=== PATIENT | female | born 1990 | race Caucasian/White ===

== ENCOUNTER → 2017-12-17 | Outpatient (CLI) | payer SELFPAY ==
--- NOTE | 2017-12-17 15:59 | RADIOLOGY REPORT (SQ) ---
EXAM DESCRIPTION: U/S OB TRANSVAGINAL W/O DOP COMPLETED DATE/TIME: 12/17/2017 3:46 pm REASON FOR STUDY: ENCOUNTER FOR SUPERVISION OF OTHER NORMAL , FIRST TRIMESTER Z34.81 ENCOU NTER FOR SUPRVSN OF NORMAL , FIRST TRIM COMPARISON: None. TECHNIQUE: Transvaginal static and realtime grayscale images acquired of the pelvis. Additional eugenia cted spectral and color Doppler images recorded. All images stored on PACs. bHCG: Not available. LIMITATIONS: None. FINDINGS: UTERUS: No masses. No anomalies. GESTATIONAL SAC: Yes, measurements correspond to a 7 week 5 day gestation. YOLK SAC: No. POLE: No. RIGHT ADNEXA: Normal ovary with normal vascular flow. No adnexal free fluid. No adnexal masses. LEFT ADNEXA: Normal ovary with normal vascular flow. No adnexal free fluid. No adnexal masses. FREE FLUID: None. OTHER: Possible subchorionic bleed measuring 0.4 x 0.6 x 1.2 cm. IMPRESSION: POSSIBLE EARLY INTRAUTERINE . INTRAUTERINE GESTATIONAL SAC PRESENT WITH MEASUREMENTS CORRESPONDING TO A 7 WEEK 5 DAY GESTATION. LA CK OF VISUALIZATION OF THE YOLK SAC OR POLE AT THIS TIME IS SOMEWHAT CONCERNING. RECOMMEND FOLLOW-UP ULTRASOUND FOR VERIFICATION AND TO DETERMINE IF THERE IS NORMAL DEVELOPMENT OF TH E FETUS. Trimester of : First - 0 to 13 weeks. TECHNICAL DOCUMENTATION: JOB ID: [id number] [employer]- All Rights Reserved Reading location - IP/workstation name: [facility]
== END ==
LOC: RAD 14:56
PROVIDERS: ATTEND Nurse Practitioner Women's Health
DX: Z34.81 Encounter for supervision of other normal pregnancy, first trimester (principal)
CPT/HCPCS: 76817

== ENCOUNTER → 2017-12-23 | Outpatient (CLI) | payer MEDICAID | LOC: OCH 17:16 | PROVIDERS: ATTEND Nurse Practitioner Women's Health | DX: O36.80X0 Pregnancy with inconclusive fetal viability, not applicable or unspecified (principal); Z3A.00 Weeks of gestation of pregnancy not specified | CPT/HCPCS: 36415; 84702 ==

== ENCOUNTER → 2017-12-26 | Outpatient (CLI) | payer MEDICAID ==
--- NOTE | 2017-12-26 15:46 | RADIOLOGY REPORT (SQ) ---
EXAM DESCRIPTION: U/S OB TRANSVAG W/DOPPLER COMPLETED DATE/TIME: 12/26/2017 3:37 pm REASON FOR STUDY: O36.80X0 W INCONCLUSIVE VIABILITY, UNSP O36.80X0 W INCO NCLUSIVE VIABILITY, UNSP COMPARISON: 12/17/2017. TECHNIQUE: Transvaginal static and realtime grayscale images acquired of the pelvis. Additional eugenia cted spectral and color Doppler images recorded. All images stored on PACs. bHCG: Not available. LIMITATIONS: None. FINDINGS: UTERUS: No masses. No anomalies. GESTATIONAL SAC: Intrauterine gestational sac. Measurements correspond with a gestational age of 9 w eeks. YOLK SAC: No. POLE: No. RIGHT ADNEXA: Normal ovary with normal vascular flow. No adnexal free fluid. No adnexal masses. LEFT ADNEXA: Normal ovary with normal vascular flow. No adnexal free fluid. No adnexal masses. FREE FLUID: None. OTHER: Sub current bleed measuring 1 x 2 cm. IMPRESSION: GESTATIONAL SAC WITH NO YOLK SAC OR POLE. NO NORMAL DEVELOPMENT SINCE THE PRIOR STUDY. LACK OF NORMAL PROGRESSION IS CONCERNING FOR DEMISE. RECOMMEND CONFIRMATION WITH HCG LEVELS AN D FOLLOW-UP ULTRASOUND IN A FEW DAYS MAY ALSO BE INDICATED. Trimester of : First - 0 to 13 weeks. TECHNICAL DOCUMENTATION: JOB ID: [id number] [employer]- All Rights Reserved Reading location - IP/workstation name: [email or web address]
== END ==
LOC: RAD 15:08
PROVIDERS: ATTEND Nurse Practitioner Women's Health
DX: O36.80X0 Pregnancy with inconclusive fetal viability, not applicable or unspecified (principal); Z3A.00 Weeks of gestation of pregnancy not specified
CPT/HCPCS: 76817; 93976

== ENCOUNTER 2018-01-02 10:26 | Day surgery (SDC) | payer MEDICAID ==
[2018-01-02] MEDS ORDERED: HYDROMORPHONE HCL 2 MG TABLET PO PRN (11:04)
[2018-01-02] MEDS ORDERED: IBUPROFEN 800 MG TABLET PO PRN (11:04)
[2018-01-02] MEDS ORDERED: OXYCODONE-ACETAMINOPHEN 5-325 MG TABLET PO PRN ×4 (11:04→12:07)
[2018-01-02 11:14] LABS: HEMATOCRIT 36.6 % (36.0-47.0); HEMOGLOBIN 12.9 g/dL (12.0-15.5); MEAN CORPUSCULAR HEMOGLOBIN 32.1 pg (27.0-33.4); MEAN CORPUSCULAR HGB CONC 35.2 g/dL (32.0-36.0); MEAN CORPUSCULAR VOLUME 91 fl (80-97); PLATELET COUNT 297 10^3/uL (150-450); RED BLOOD COUNT 4.02 10^6/uL (3.72-5.28); RED CELL DISTRIBUTION WIDTH 12.8 % (11.5-14.0); WHITE BLOOD COUNT 5.4 10^3/uL (4.0-10.5)
[2018-01-02] MEDS ORDERED: MIDAZOLAM 2 MG/2 ML INJ ONE (11:36)
[2018-01-02] MEDS ORDERED: LIDOCAINE 2% INJ-PF (20 MG/ML) 10 ML AMPUL ONE (11:36)
[2018-01-02] MEDS ORDERED: FENTANYL CITRATE INJ/PF 100 MCG/2 ML AMPUL ONE (11:36)
[2018-01-02] MEDS ORDERED: ACETAMINOPHEN 100 ML IV ONE (11:37)
[2018-01-02] MEDS ORDERED: PROPOFOL INJ 200 MG/20 ML VIAL IV ONE (11:37)
[2018-01-02] MEDS ORDERED: FENTANYL CITRATE INJ/PF 100 MCG/2 ML AMPUL IV PRN ×3 (12:07)
[2018-01-02] MEDS ORDERED: PROMETHAZINE HCL INJ 25 MG/1 ML VIAL IV PRN ×2 (12:07)
[2018-01-02] MEDS ORDERED: MEPERIDINE HCL/PF INJ 25 MG/1 ML DISP.SYRIN IV PRN (12:07)
[2018-01-02] MEDS ORDERED: ONDANSETRON HCL INJ/PF 4 MG/2 ML SDV IV PRN (12:07)
[2018-01-02] MEDS ORDERED: DIPHENHYDRAMINE HCL 50 MG/ML VIAL IV PRN (12:07)
--- NOTE | 2018-01-02 12:54 | OPERATIVE REPORT E ---
Operative Report NAME: ALICIA CARDONA : 1990 AGE: 27Y DATE OF SURGERY: January 02, 2018 ROOM: PREOPERATIVE DIAGNOSIS: Missed . POSTOPERATIVE DIAGNOSIS: Missed . OPERATION: Suction dilatation and curettage. ESTIMATED BLOOD LOSS: Less than 25 mL. SURGEON: Jean-Claude FREY M.D. ANESTHESIA: General. TISSUE REMOVED OR ALTERED: Products of conception. PROCEDURE: The patient was placed in the dorsal lithotomy position, prepped and draped in the usual, sterile fashion. Speculum. Cervix was visualized and grasped with a single-toothed tenaculum, sounded to a depth of 9 cm. The cervix was sufficiently dilated to admit a #8 suction catheter. Suction curettage was performed, followed by sharp curettage, followed by repeat suction, a moderate amount of tissue being recovered. The single-toothed tenaculum was removed and hemostasis was noted. The patient tolerated the procedure well and was taken to recovery in good condition. DICTATING PHYSICIAN: Jean-Claude FREY M.D. [id number] PHY#: [id number] ID: [id number] JOB#: [id number] ACCT: [id number] cc:Jean-Claude FREY M.D. >
[2018-01-02 14:23] VITALS: BP 109/75
== END 2018-01-02 14:15 | disposition home or self-care (01) ==
LOC: OROUT 10:26
PROVIDERS: ATTEND Obstetrics & Gynecology
DX: O02.1 Missed abortion (principal)
CPT/HCPCS: 36415; 85027; 88305 ×2; 59820; J2250; J3010; J2704; J3490; J0131; 1965

== ENCOUNTER 2020-08-22 22:21 | Inpatient (IN) | payer BC ==
[2020-08-22] MEDS ORDERED: RINGERS SOLUTION,LACTATED 1,000 ML IV ONE (22:39)
[2020-08-22] MEDS ORDERED: RINGERS SOLUTION,LACTATED 1,000 ML IV PRN (22:39)
[2020-08-22 22:54] LABS: APPEARANCE,URINE TURBID; BILIRUBIN,URINE NEGATIVE (NEGATIVE); COLOR,URINE YELLOW; GLUCOSE, URINE NEGATIVE (NEGATIVE); KETONES,URINE NEGATIVE (NEGATIVE); LEUKOCYTE ESTERASE,URINE TRACE (NEGATIVE); NITRITE,URINE NEGATIVE (NEGATIVE); PROTEIN,URINE 100 mg/dL (NEGATIVE); URINE SPECIFIC GRAVITY 1.012
[2020-08-22 23:17] LABS: ABSOLUTE EOSINOPHILS # (AUTO) 0.1 10^3/uL (0.0-0.6); ABSOLUTE LYMPHOCYTES (AUTO) 1.6 10^3/uL (0.5-4.7); ABSOLUTE MONOCYTES (AUTO) 0.8 10^3/uL (0.1-1.4); ABSOLUTE NEUT (AUTO) 5.2 10^3/uL (1.7-8.2); BASOPHILS % (AUTO) 0.6 % (0-2); EOSINOPHILS % (AUTO) 1.4 % (0-6); HEMATOCRIT 34.3 % (36.0-47.0); LYMPHOCYTES % (AUTO) 20.5 % (13-45); MEAN CORPUSCULAR HEMOGLOBIN 32.8 pg (27.0-33.4); MEAN CORPUSCULAR VOLUME 94 fl (80-97); PLATELET COUNT 290 10^3/uL (150-450); RED BLOOD COUNT 3.65 10^6/uL (3.72-5.28); RED CELL DISTRIBUTION WIDTH 16.4 % (11.5-14.0); SEGMENTED NEUTROPHILS % (AUTO) 67.5 % (42-78); TOTAL CELLS COUNTED % (AUTO) 100 %; WHITE BLOOD COUNT 7.7 10^3/uL (4.0-10.5)
[2020-08-23] MEDS ORDERED: EPHEDRINE SULFATE INJ 50 MG/1 ML AMPULE ONE (01:10)
[2020-08-23] MEDS ORDERED: FENTANYL/BUPIVACAINE/NS/PF 300 MCG/150 ML RTUINJ EPI ONE (01:10)
[2020-08-23] MEDS ORDERED: ROPIVACAINE HCL 0.2% INJ/PF (2 MG/ML) 20 ML SDV ONE (01:10)
[2020-08-23] MEDS ORDERED: ACETAMINOPHEN 325 MG TABLET ONE ×2 (04:09→10:18)
[2020-08-23] MEDS ORDERED: ACETAMINOPHEN 325 MG TABLET PO PRN ×3 (04:13→12:55)
[2020-08-23] MEDS ORDERED: MAG HYDROX/AL HYDROX/SIMETH SUSP 30 ML UDCUP ONE ×2 (05:30→09:59)
--- NOTE | 2020-08-23 07:12 | Admission Physical ---
Datetime Report Generated by CPN: 08/23/2020 07:12 CURRENT ADMISSION Chief Complaint: Uterine Contractions Admit Impression : Term, Intrauterine Admit Plan: Admit to Unit ALLERGIES Medication Allergies: No Medication Allergies: No Known Allergies (01/02/2018) Latex: No Latex Allergies Food Allergies: no Environmental Allergies: no OBSTETRICAL HISTORY EDC: 08/20/2020 00:00 : 5 Para: 2 Term: 2 : 0 SAB: 2 IAB: 0 Ectopic: 0 Livin Cesareans: 0 VBACs: 0 Multiple Births: 0 Gestational Diabetes: No Rh Sensitization: No Incompetent Cervix: No MATHIEU: No Infertility: No ART Treatment: No Uterine Anomaly: No IUGR: No Hx Previous C/S: No Macrosomia: No Hx Loss/Stillborn: No PIH: No Hx : No Placenta Previa/Abruption: No Depression/PP Depression: No PTL/PROM: No Post Hemorrhage: No Current Procedures: Ultrasound SEE RECORDS Alcohol: No Marijuana : No Cocaine: No Other Illicit Drugs: No Cigarettes: Never Smoker. [id number] MEDICAL HISTORY Diabetes: No Blood Transfusion: No Pulmonary Disease (Asthma, TB): No Breast Disease: No Hypertension: No Paving Contractor Surgery: No Heart Disease: No Hosp/Surgery: No Autoimmune Disorder: No Anesthetic Complications: No Kidney Disease: Yes Abnormal Pap Smear: No Neuro/Epilepsy: No Psychiatric Disorders: No Other Medical Diseases: No Hepatitis/Liver Disease: No Significant Family History: No Varicosities/Phlebitis: No Trauma/Violence : No Thyroid Dysfunction: No INFECTIOUS HISTORY Gonorrhea: No Genital Herpes: No Chlamydia: No Tuberculosis: No Syphilis: No Hepatitis: No HIV/AIDS Exposure: No Rash or Viral Illness: No HPV: No PHYSICAL EXAM General: Normal HEENT: Normal Neurologic: Normal Thyroid: Normal Heart: Normal Lungs: Normal Breast: Deferred Back: Normal Abdomen: Normal Genitourinary Exam: Normal Extremities: Normal DTRs: Normal Pelvic Type: Adequate Vital Signs: Reviewed VAGINAL EXAM Dilatation: 8 Effacement: 80 FETUS A EGA: 40.3 FHR- Baseline: 130 Variability: Moderate 6-25bpm FHR Category: Category I Presentation: Vertex Admit Comment: 9lbs PLANS FOR LABOR AND DELIVERY Labor and Delivery: None Pain Management: Epidural Feeding Preference: Breast Benefit of Breast Feed Discussed: Yes Circumcision: Yes INFORMED CONSENT Signature: with User ID: [email or web address]
[2020-08-23] MEDS ORDERED: OXYTOCIN 10 UNIT/ML VIAL ONE (07:36)
[2020-08-23] MEDS ORDERED: OXYTOCIN/0.9 % SODIUM CHLORIDE 30 UNIT/500 ML RTUINJ ONE (07:36)
[2020-08-23] MEDS ORDERED: MISOPROSTOL 0.2 MG TABLET ONE (07:36)
[2020-08-23] MEDS ORDERED: LIDOCAINE 1% INJ-PF (10 MG/ML) 30 ML SDV ONE (07:36)
[2020-08-23] MEDS ORDERED: OXYTOCIN/0.9 % SODIUM CHLORIDE 30 UNIT/500 ML RTUINJ IV PRN ×2 (10:17→12:55)
[2020-08-23] MEDS ORDERED: MAG HYDROX/AL HYDROX/SIMETH SUSP 30 ML UDCUP PO PRN (11:01)
[2020-08-23] MEDS ORDERED: PROMETHAZINE HCL 25 MG SUPP.RECT PR PRN (12:55)
[2020-08-23] MEDS ORDERED: MEASLES,MUMPS&RUBELLA VACC/PF 0.5 ML VIAL SUBCUT PRN (12:55)
[2020-08-23] MEDS ORDERED: MAGNESIUM HYDROXIDE SUSP 30 ML UDCUP PO PRN (12:55)
[2020-08-23] MEDS ORDERED: PROMETHAZINE HCL INJ 25 MG/1 ML VIAL IV PRN (12:55)
[2020-08-23] MEDS ORDERED: DIBUCAINE 1% OINTMENT 28 GM TP PRN (12:55)
[2020-08-23] MEDS ORDERED: PSEUDOEPHEDRINE HCL 30 MG TABLET PO PRN (12:55)
[2020-08-23] MEDS ORDERED: DIPH/PERTUSS(ACELL)/TETANUS VAC/PF 0.5 ML SYR (>=10YO) IM PRN (12:55)
[2020-08-23] MEDS ORDERED: GLYCERIN/WITCH HAZEL LEAF 1 EACH MED..WIPE TP PRN (12:55)
[2020-08-23] MEDS ORDERED: BENZOCAINE/MENTHOL AEROSOL SPRAY 56 ML TOP PRN (12:55)
[2020-08-23] MEDS ORDERED: NA PHOS,M-B/NA PHOS,DI-BA (ADULT) 133 ML ENEMA PR PRN (12:55)
[2020-08-23] MEDS ORDERED: PROMETHAZINE HCL 25 MG TABLET PO PRN (12:55)
[2020-08-23] MEDS ORDERED: DIPHENHYDRAMINE HCL 25 MG CAPSULE PO PRN (12:55)
[2020-08-23] MEDS ORDERED: MISOPROSTOL 0.2 MG TABLET PR ONE (12:56)
--- NOTE | 2020-08-23 13:26 | Birth Certificate Data ---
Cert Data Datetime Report Generated by CPAmando: 08/23/2020 13:26 CERTIFICATE DATA 47a. Care: Yes (08/22/2020 22:47:KHOI Horton) 47b. Date of First Visit: 01/18/2020 00:00 (08/22/2020 22:47:KHOI Horton) 47c. Date of Last Visit: 08/22/2020 00:00 (08/22/2020 22:47:KHOI Horton) 47d. Number of Visits: 13 (08/22/2020 22:47:KHOI Horton) 48a. Number of Prev Live Births: 2 (08/22/2020 22:47:KHOI Horton) 48b. Now Livin (08/22/2020 22:47:KHOI Horton) 48c. Live Births Now : 0 (08/22/2020 22:47:QS system process) 48d. Date of Last Live : 05/07/2012 00:00 (08/22/2020 22:47:Hemalatha Bellavance, RNC) 48e. Losses: 2 (08/22/2020 22:47:Hemalatha Bellavance, RNC) 48f. Date of Last Preg Loss: 12/25/2017 00:00 (08/22/2020 22:47:Hemalatha Bellavance, RNC) RISK FACTORS IN THIS 49a. Diabetes: No (08/22/2020 22:47:Hemalatha Bellavance, RNC) 49b. Hypertension: No (08/22/2020 22:47:Hemalatha Bellavance, RNC) 49c. Previous Births: 0 (08/22/2020 22:47:Hemalatha Bellavance, RNC) 49d. Stillborns: No (08/22/2020 22:47:Hemalatha Bellavance, RNC) 49d. IUGR: No (08/22/2020 22:47:Hemalatha Bellavance, RNC) 49e. Infertility Treatment: No (08/22/2020 22:47:Hemalatha Bellavance, RNC) 49f. Previous Cesareans: 0 (08/22/2020 22:47:Hemalatha Bellavance, RNC) Mother's Height 50b. Height Inches: 66 (08/22/2020 22:56:QS system process) Mother's Weight 51a. Pre- Weight (lbs): 118 (08/22/2020 22:47:Hemalatha Gibbs RNC) 51b. Weight at Delivery (lbs): 154 (08/22/2020 22:56:QS system process) 52. Dt Last Normal Menses Began: 10/28/2019 00:00 (08/22/2020 22:47:Hemalathamarcos Gibbs RNC) Infections Present/Treated 53a. Gonorrhea: No (08/22/2020 22:47:Hemalatha Mariame, RNC) Results this Hospital Visit : Negative (08/22/2020 22:47:Hemalatha Bernie RNC) 53b. Syphilis: No (08/22/2020 22:47:Hemalatha Bellavance, RNC) Results this Hospital Visit: NONREACTIVE (08/22/2020 22:52:QS system process) 53c. Chlamydia: No (08/22/2020 22:47:KHOI Horton) Results this Hospital Visit: Negative (08/22/2020 22:47:KHOI Horton) 53d. Hepatitis B: No (08/22/2020 22:47:KHOI Horton) Results this Hospital Visit: Negative (08/22/2020 22:47:KHOI Horton) 53e. Hepatitis C: Negative (08/22/2020 22:47:KHOI Horton) 53h. Mother Tested for HBsAG: Yes (08/22/2020 22:47:KHOI Horton) 53i. Date Tested: 02/10/2020 00:00 (08/22/2020 22:47:KHOI Horton) 53j. Test Result: Negative (08/22/2020 22:47:KHOI Horton) Obstetric Procedures 54a, b, c. Obstetric Procedures: Ultrasound (08/22/2020 22:47:KHOI Horton) Cigarette Smoking Cigarette Smoking: Never Smoker. [id number] (08/22/2020 22:47:Hemalatha Gibbs RN) 55a. 3 Months Before Preg - Ci (08/22/2020 22:47:Trixie Wallace RN) 55b. 1st Trimester of Preg- Ci (08/22/2020 22:47:Trixie Wallace RN) 55c. 2nd Trimester of Preg- Ci (08/22/2020 22:47:Trixie Wallace RN) 55d. 3rd Trimester of Preg- Ci (08/22/2020 22:47:Trixie Wallace RN) Onset of Labor 56a. PROM >12 Hrs: 13.63 (08/22/2020 22:47:QS system process) 56b. Precipitous Labor <3 Hrs: 13 (08/22/2020 22:47:QS system process) 56c. Prolonged Labor > 20 Hrs: 13 (08/22/2020 22:47:QS system process) 57a. Induction of Labor: Augmentation (08/22/2020 22:47:Trixie Wallace RN) 57a. Induction of Labor: Cytotec @ 1000 mcg [place] (08/23/2020 12:40:Trixie Wallace RN) 57c. Non-Vertex Presentation A: Vertex (08/22/2020 22:47:Trixie Wallace RN) 57d. Steroids - Lung Mat: None (08/22/2020 22:47:Trixie Wallace RN) 57d. Steroids - Lung Mat: Not Applicable (08/22/2020 22:47:Trixie Wallace RN) 57f. Mat [place] or Temp >100.4: 98.9 (08/22/2020 22:47:Trixie Wallace RN) 57g. Moderate/Heavy Meconium: Clear (08/22/2020 22:46:KHOI Horton) 57h. Intolerance of Labor: N/A (08/22/2020 22:47:KHOI Valiente) : N/A (08/22/2020 22:47:KHOI Valiente) 57i. Epidural/Spinal Anesthesia: Epidural (08/22/2020 22:47:Trixie Wallace RN) Method of Delivery 58a. Forceps - Unsuccessful A: N/A (08/22/2020 22:47:Trixie Wallace RN) 58b. Vacuum - Unsuccessful A: N/A (08/22/2020 22:47:Trixie Wallace RN) 58c. Presentation at 58c. Presentation at - A : Vertex (08/22/2020 22:47:[facility] ) 58c. Presentation at - A : N/A (08/22/2020 22:47:[facility] ) 58c. Presentation at - A : Cephalic (08/23/2020 02:05:Hemalathamarcos Gibbs, [facility]) Final Route and Method of Del 58d. Baby A [facility]/Del[facility]: [facility] 58e. Trial of Labor Attempted: No (08/22/2020 22:47:[facility], ) 58e. Trial of Labor Attempted A: N/A (08/22/2020 22:47:[facility] RN) 58e. Trial of Labor Attempted B: N/A (08/22/2020 22:47:[facility] ) Maternal Morbidity 59b. 3rd or 4th Degree Lacs: Perineal (08/22/2020 22:47:Trixie Madison, RN) Birthweight Baby A: 4479 (08/22/2020 22:47:Trixie Madison RN) 60a. Pounds : 9 (08/22/2020 22:47:QS system process) 60b. Ounces: 14 (08/22/2020 22:47:QS system process) 61. GA at Delivery Baby A: 40.3 (08/22/2020 22:47:Trixie Madison RN) : Full Term- 39- 40.6 Weeks (08/22/2020 22:47:QS system process) 62a. 5 Minute Baby A: 9 (08/22/2020 22:47:QS system process) Baby B: 9 (08/22/2020 22:47:QS system process)
--- NOTE | 2020-08-23 13:26 | Delivery Summary ---
Del Sum A-C Datetime Report Generated by CPN: 08/23/2020 13:26 DELIVERY PERSONNEL DELIVERY PERSONNEL: [id number] Nurse Casing Crew Certified:: Cate Pérez CNM Labor and Delivery Nurse:: Trixie Wallace RNelectrical engineering drafting officer Nurse:: May Johnson RN Nursery Nurse:: Romina Lawson RN MATERNAL INFORMATION Delivery Anesthesia: Epidural Medications After Delivery: Pitocin 30 Units in 500ml NS/D5W; Cytotec 1000mcg Per Rectum/Vagina Delivery QBL: 305 Maternal Complications: None Provider Comments: pt was complete on my arrival to unit this am but pretty heavy epidural. Pt Allowed to labor down and pitocin started for better contraction pattern/strength. Began pushing and quickly delivered a viable baby boy. Baby with vigorous respiratory effort and cry spontaneously at . Baby placed on maternal abdomen, cord allowed to stop pulsating then clamped x2 and cut by FOB (3vc noted, cord blood collected). Placenta delivered spontaneously intact, fundus firm @ u-1, moderate bleeding with clots, vaginal sweep performed, fundus remained firm and minimal bleeding at that time. Vaginal and perineal inspection revealed laceration as noted and repaired. Mother and baby remain stable, skin to skin and bonding at this time. 1000mcg cytotec rectally for phophylaxis LABOR SUMMARY EDC: 08/20/2020 00:00 No. Babies in Womb: 1 Attempted: No Labor Anesthesia: Epidural LABOR INFORMATION Reason for Induction: Not Applicable Onset of Labor: 08/22/2020 22:30 Complete Dilatation: 08/23/2020 08:10 Cervical Ripening Agents: Cytotec @ 1000 mcg MS Oxytocin: Augmentation Group B Beta Strep: neg Antibiotics # of Doses: n/a Name of Antibiotic Given: n/a Steroids Given: None Reason Steroids Not Administered: Not Applicable MEMBRANES Membranes Rupture Method: Spontaneous Rupture of Membranes: 08/22/2020 22:30 Length of Rupture (hr): 13.63 Amniotic Fluid Color: Clear Amniotic Fluid Amount: Small Amniotic Fluid Odor: None STAGES OF LABOR Stage 1 hr: 9 Stage 1 min: 40 Stage 2 hr: 3 Stage 2 min: 58 Stage 3 hr: 0 Stage 3 min: 4 Total Time in Labor hr: 13 Total Time in Labor min: 42 VAGINAL DELIVERY Episiotomy: None Laceration #1: Perineal Laceration Extension #1: Second Degree Laceration Repair: Yes Laceration Repair Note: MLL repaired with 2-[address] in the usual fashion-hemostasis achieved pt tolerated repair well Sponge Count Correct: Yes; Vaginal Sweep Performed Sharps Count Correct: Yes CSECTION DELIVERY Primary Indication: N/A Secondary Indication: N/A CSection Incidence: N/A Labor: N/A Elective: N/A CSection Incision: N/A BABY A INFORMATION Infant Delivery Date/Time: 08/23/2020 12:08 Method of Delivery: Vaginal Nurse Controlled Delivery: No Born in Route : No : N/A Forceps: N/A Vacuum Extraction: N/A Shoulder Dystocia : No PRESENTATION/POSITION BABY A Presentation: Cephalic Cephalic Presentation: Vertex Vertex Position: Left Occipital Anterior Breech Presentation: N/A PLACENTA INFORMATION BABY A Placenta Delivery Time : 08/23/2020 12:12 Placenta Method of Delivery: Spontaneous Placenta Status: Delivered SCORES BABY A Heart Rate 1 min: >100 bpm Resp Effort 1 min: Good Cry Reflex Irritability 1 min: Cough or Sneeze or Pulls Away Muscle Tone 1 min: Active Motion Color 1 min: Body [place], Extremities Blue Resuscitation Effort 1 min: Tactile Stimulation SCORE 1 MIN: 9 Heart Rate 5 min: >100 bpm Resp Effort 5 min: Good Cry Reflex Irritability 5 min: Cough or Sneeze or Pulls Away Muscle Tone 5 min: Active Motion Color 5 min: Body [place], Extremities Blue Resuscitation Effort 5 min: Tactile Stimulation SCORE 5 MIN: 9 INFORMATION BABY A Gestational Age at Delivery: 40.3 Gestational Status: Full Term- 39- 40.6 Weeks Outcome : Liveborn Condition : Stable Infant Sex: Male IDENTIFICATION BABY A Infant Verification Date/Time: 08/23/2020 12:40 ID Band Number: [id number] Mother's Name Verified: Yes RN Verifying : AFeuston, RN Additional Verifying Personnel: Georgina Lawson, RN WEIGHT/LENGTH BABY A Infant Birthweight (gm): 4479 Weight (lb): 9 Weight (oz): 14 Infant Length (in): 21.75 Infant Length (cm): 55.25 CORD INFORMATION BABY A No. Cord Vessels: 3 Nuchal Cord : N/A Cord Blood Taken: Yes-For Eval (Mom's Blood Type - or O+) Infant Suction: None ASSESSMENT BABY A Complications: None Infant Respirations: Appears Normal Skin to Skin: Yes Skin to Skin Time (min): 60 Wood Handler/ALS Called : No BABY B INFORMATION : N/A SCORES BABY B Heart Rate 1 min: >100 bpm Resp Effort 1 min: Good Cry Reflex Irritability 1 min: Cough or Sneeze or Pulls Away Muscle Tone 1 min: Active Motion Color 1 min: Body [place], Extremities Blue Resuscitation Effort 1 min: Tactile Stimulation SCORE 1 MIN: 9 Heart Rate 5 min: >100 bpm Resp Effort 5 min: Good Cry Reflex Irritability 5 min: Cough or Sneeze or Pulls Away Muscle Tone 5 min: Active Motion Color 5 min: Body [place], Extremities Blue Resuscitation Effort 5 min: N/A SCORE 5 MIN: 9 SIGNATURES Assignment: Deborah Longo MD Signature: with User ID: CaValencia : with User ID: [email or web address]
[2020-08-23] MEDS ORDERED: IBUPROFEN 800 MG TABLET ONE (13:54)
[2020-08-23] MEDS: IBUPROFEN 800 MG TABLET PO SCH ×2 (14:04→22:38)
[2020-08-23] MEDS ORDERED: RINGERS SOLUTION,LACTATED 1,000 ML IV PRN (15:58)
[2020-08-23] MEDS: FERROUS SULFATE 325 MG TABLET PO SCH (17:39)
[2020-08-23] MEDS: DOCUSATE SODIUM 100 MG CAPSULE PO SCH (17:39)
[2020-08-23] MEDS: HYDROCODONE/ACETAMINOPHEN 5-325 MG TABLET PO PRN (20:53)
[2020-08-23] MEDS: FAMOTIDINE 20 MG TABLET PO SCH (22:40)
[2020-08-24] MEDS: HYDROCODONE/ACETAMINOPHEN 5-325 MG TABLET PO PRN ×4 (01:14→18:04)
[2020-08-24] MEDS: IBUPROFEN 800 MG TABLET PO SCH ×3 (06:24→22:02)
[2020-08-24 08:03] LABS: HEMATOCRIT 27.9 % (36.0-47.0); MEAN CORPUSCULAR HEMOGLOBIN 32.8 pg (27.0-33.4); MEAN CORPUSCULAR HGB CONC 34.6 g/dL (32.0-36.0); MEAN CORPUSCULAR VOLUME 95 fl (80-97); PLATELET COUNT 247 10^3/uL (150-450); RED BLOOD COUNT 2.94 10^6/uL (3.72-5.28); RED CELL DISTRIBUTION WIDTH 16.6 % (11.5-14.0); WHITE BLOOD COUNT 11.1 10^3/uL (4.0-10.5)
[2020-08-24 08:04] LABS: HEMOGLOBIN 9.7 g/dL (12.0-15.5)
[2020-08-24] MEDS: SENNOSIDES/DOCUSATE 8.6-50 MG 1 EACH TABLET PO SCH (10:38)
[2020-08-24] MEDS: DOCUSATE SODIUM 100 MG CAPSULE PO SCH ×2 (10:38→17:08)
[2020-08-24] MEDS: PRENATAL VITAMIN W DHA CAPSULE PO SCH (10:38)
[2020-08-24] MEDS: FERROUS SULFATE 325 MG TABLET PO SCH ×2 (10:38→17:08)
[2020-08-24] MEDS: FAMOTIDINE 20 MG TABLET PO SCH ×2 (10:38→22:02)
--- NOTE | 2020-08-24 11:17 | PDOC PROGRESS REPORT ---
Subjective-OB Progress Note for:: 08/24/20 Subjective: Pt doing well, no concerns. She reports light bleeding reg diet and voiding w/o difficulty. Physical Exam (OB) Vital Signs: Temp Pulse Resp BP Pulse Ox 97.8 F 71 18 93/62 L 100 08/24/20 08:24 08/24/20 08:24 08/24/20 08:24 08/24/20 08:24 08/24/20 08:24 Intake & Output 08/23/20 08/24/20 08/25/20 06:59 06:59 06:59 Intake Total 1830 Output Total 1725 Balance 105 Weight 70.2 kg - PIH/Pre-Eclampsia Clonus: Negative Headache: Present Epigastric Pain: No Visual Changes: No - Maternal Morbidity 59. Maternal Morbidity (serious complications experinced by the mother associated with labor and delivery: None of the above - Lochia Lochia Amount: Scant < 10 ml Lochia Color: Rubra/Red - Abdomen Description: Soft Hernia Present: No Fundal Description: Firm, Midline Fundal Height: u/u - u/2 Objective-Diagnostic Laboratory: 08/24/20 07:22 08/24/20 07:22 WBC 11.1 H RBC 2.94 L Hgb 9.7 L D Hct 27.9 L MCV 95 MCH 32.8 MCHC 34.6 RDW 16.6 H Plt Count 247 Assessment and Plan(PN) - Assessment and Plan (1) Perineal laceration during delivery, delivered Is this a current diagnosis for this admission?: Yes (2) Vaginal delivery Is this a current diagnosis for this admission?: Yes - Time Spent with Patient Time with patient: Less than 15 minutes Medications reviewed and adjusted accordingly: Yes - Disposition Anticipated Discharge Disposition: Home, Self Care Anticipated Discharge Timeframe: within 24 hours
--- OUTSIDE RECORDS SUMMARY | 2020-08-24 17:45 | XMS REPORT ---
:1990 [facility] [address] [place] [id number] Care Team Providers Name Role Phone Maria A Bolivar Attending Clinician Unavailable Allergies, Adverse Reactions, Alerts This patient has no known allergies or adverse reactions. Medications This patient has no known medications. Problems This patient has no known problems. Procedures Procedure Date / Time Performed Performing Clinician Devic e PREV VISIT NEW AGE 18-39 2018-05-14 08:30:00 Results Test Description Test Time Test Comments Text Results Atomic Results Result Comments RPR, Rfx Qn RPR/Confirm TP\S\ 2018-06-11 10:57:00 Test Item Value Reference Range Comments RPR (test code = 29128-0) Non Reactive Non Reactive Lipid Panel\S\2018-06-11 10:57:00 Test Item Value Reference Range Comments LDL Cholesterol Calc (test code = 23266-0) 111 mg/dL 0-99 Cholesterol, Total (test code = 2093-3) 189 mg/dL 100-199 HDL Cholesterol (test code = 2085-9) 64 mg/dL >39 VLDL Cholesterol [place] (test code = 84062-3) 14 mg/dL 5-40 Triglycerides (test code = 2571-8) 69 mg/dL 0-149 Comp. Metabolic Panel (14)\S\2018-06-11 10:57:00 Test Item Value Reference Range Comments AST (SGOT) (test code = 1920-8) 16 IU/L 0-40 Potassium (test code = 2823-3) 4.4 mmol/L 3.5-5.2 BUN (test code = 3094-0) 9 mg/dL 6-20 A/G Ratio (test code = 1759-0) 1.9 1.2-2.2 Chloride (test code = 2075-0) 102 mmol/L 96-106 Carbon Dioxide, Total (test code = 2027-9) 24 mmol/L 20-29 Alkaline Phosphatase (test code = 6768-6) 62 IU/L 39-117 Protein, Total (test code = 2885-2) 7.7 g/dL 6.0-8.5 eGFR If Africn Am (test code = 15264-3) 140 mL/min/1.73 >59 Bilirubin, Total (test code = 1975-2) 0.5 mg/dL 0.0-1.2 Creatinine (test code = 2160-0) 0.64 mg/dL 0.57-1.00 Sodium (test code = 2951-2) 140 mmol/L 134-144 eGFR If NonAfricn Am (test code = 30791-0) 122 mL/min/1.73 >59 Glucose (test code = 2345-7) 87 mg/dL 65-99 Calcium (test code = 88602-6) 10.0 mg/dL 8.7-10.2 Albumin (test code = 1751-7) 5.0 g/dL 3.5-5.5 ALT (SGPT) (test code = 1742-6) 8 IU/L 0-32 BUN/Creatinine Ratio (test code = 3097-3) 14 9-23 Globulin, Total (test code = 51420-3) 2.7 g/dL 1.5-4.5 Panel [id number]\S\2018-06-11 10:57:00 Test Item Value Reference Range Comments HIV Screen 4th Generation wRfx (test code = Non Reactive Non Reactive 56189-2) CBC With Differential/Platelet\S\2018-06-11 10:57:00 Test Item Value Reference Range Comments RBC (test code = 789-8) 3.96 x10E6/uL 3.77-5.28 MCHC (test code = 786-4) 33.2 g/dL 31.5-35.7 Lymphs (Absolute) (test code = 731-0) 1.7 x10E3/uL 0.7-3.1 Basos (test code = 706-2) 1 % Not Estab. Monocytes(Absolute) (test code = 742-7) 0.3 x10E3/uL 0.1-0.9 Monocytes (test code = 5905-5) 7 % Not Estab. Neutrophils (test code = 770-8) 48 % Not Estab. MCV (test code = 787-2) 95 fL 79-97 Eos (test code = 713-8) 3 % Not Estab. Lymphs (test code = 736-9) 41 % Not Estab. Immature Grans (Abs) (test code = 33131-0) 0.0 x10E3/uL 0.0-0 .1 Hemoglobin (test code = 718-7) 12.5 g/dL 11.1-15.9 Immature Granulocytes (test code = 77384-7) 0 % Not Estab. Hematocrit (test code = 4544-3) 37.7 % 34.0-46.6 Eos (Absolute) (test code = 711-2) 0.1 x10E3/uL 0.0-0.4 Neutrophils (Absolute) (test code = 751-8) 2.0 x10E3/uL 1.4-7 .0 RDW (test code = 788-0) 13.6 % 12.3-15.4 MCH (test code = 785-6) 31.6 pg 26.6-33.0 Baso (Absolute) (test code = 704-7) 0.0 x10E3/uL 0.0-0.2 WBC (test code = 6690-2) 4.2 x10E3/uL 3.4-10.8 Platelets (test code = 777-3) 347 x10E3/uL 150-379 BV/VAGINITIS PANEL DNA [id number] 10:05:00SEE NOTETHINPREP TIS PAP, HPV mRNA E6/E7 RFX HPV 16,18/45, CHLAMYDIA/N.[id number] 10:01:00 Test Item Value Reference Range Comments PREV. PAP: (test code = 44851699 [id number]) NEISSERIA GONORRHOEAE RNA, NOT DETECTED NOT DETECTED TMA, UROGENITAL (test code = 15902903) PREV. BX: (test code = NONE GIVEN 29850799) HPV mRNA E6/E7 (test code = Not Detected Not Detected 31583851) INTERPRETATION/RESULT: (test Negative for intraepithelial code = 86420106) lesion or malignancy. LMP: (test code = 73987902) [id number] SOURCE: (test code = Cervix, Endocervix 59896390) CHLAMYDIA TRACHOMATIS RNA, NOT DETECTED NOT DETECTED TMA, UROGENITAL (test code = 59915326) COMMENT: (test code = This Pap test has been evaluated 07377070) with computer assisted technology. Urine \S\2018-05-14 08:30:00 Test Item Value Reference Range Comments Urine (test code = URINEPREG) negative N/A Assessments Condition Name Status Diagnosis Date Treating Clinici an Encntr for general adult medical exam w/o Active abnormal findings Encntr for certified medical dosimetrist exam (general) (routine) w/o Active abn findings Encounter for screening for malignant Active neoplasm of cervix Encounter for screening for human Active immunodeficiency virus Encounters Start End Encounter Admission Attending Care Care Encounter Date/Time Date/Time Type Type Clinicians Facility Department ID 2018-05-14 2018-05-14 Outpatient CHARITY BolivarMallorie Riesel 56 [id number] 08:30:00 08:30:00 Maria A Children [id number] s [id number] and [id number] [place] Social History This patient has no known social history. Vital Signs This patient has no known vital signs.
[2020-08-25] MEDS: IBUPROFEN 800 MG TABLET PO SCH (05:44)
[2020-08-25] MEDS: SENNOSIDES/DOCUSATE 8.6-50 MG 1 EACH TABLET PO SCH (10:04)
[2020-08-25] MEDS: DOCUSATE SODIUM 100 MG CAPSULE PO SCH (10:05)
[2020-08-25] MEDS: FAMOTIDINE 20 MG TABLET PO SCH (10:05)
[2020-08-25] MEDS: PRENATAL VITAMIN W DHA CAPSULE PO SCH (10:05)
[2020-08-25] MEDS: FERROUS SULFATE 325 MG TABLET PO SCH (11:07)
--- NOTE | 2020-08-25 11:22 | PDOC PROGRESS REPORT ---
Subjective-OB Progress Note for:: 08/25/20 Subjective: Doing better today, blood patch took care of her headache, OOB, voiding, scant bleeding, , hsb at BS Physical Exam (OB) Vital Signs: Temp Pulse Resp BP Pulse Ox 97.1 F 73 16 114/70 100 08/25/20 08:10 08/25/20 07:44 08/25/20 07:44 08/25/20 07:44 08/25/20 07:44 Intake & Output 08/24/20 08/25/20 08/26/20 06:59 06:59 06:59 Intake Total 1830 800 Output Total 1725 Balance 105 800 - PIH/Pre-Eclampsia Clonus: Negative Headache: Absent Epigastric Pain: No Visual Changes: No - Maternal Morbidity 59. Maternal Morbidity (serious complications experinced by the mother associated with labor and delivery: None of the above - Lochia Lochia Amount: Scant < 10 ml Lochia Color: Rubra/Red - Abdomen Description: Soft Hernia Present: No Fundal Description: Firm, Midline Fundal Height: u/u - u/2 Objective-Diagnostic Laboratory: 08/24/20 07:22 Assessment and Plan(PN) - Assessment and Plan (1) Anemia Qualifiers: Other causes of anemia: acute posthemorrhagic Is this a current diagnosis for this admission?: Yes (2) Perineal laceration during delivery, delivered Is this a current diagnosis for this admission?: Yes (3) Vaginal delivery Is this a current diagnosis for this admission?: Yes - Time Spent with Patient Time with patient: Less than 15 minutes Medications reviewed and adjusted accordingly: Yes - Disposition Anticipated Discharge Disposition: Home, Self Care Anticipated Discharge Timeframe: within 24 hours
--- NOTE | 2020-08-25 11:25 | PDOC DISCHARGE SUMMARY ---
Impression - Admit/DC Date/PCP Admission Date/Primary Care Provider: 08/22/20 22:55 CANDY WRAY MD Discharge Date: 08/25/20 - Discharge Diagnosis (1) Anemia Is this a current diagnosis for this admission?: Yes (2) Perineal laceration during delivery, delivered Is this a current diagnosis for this admission?: Yes (3) Vaginal delivery Is this a current diagnosis for this admission?: Yes - Additional Information Resuscitation Status: Full Code Discharge Diet: As Tolerated, Regular Discharge Activity: Activity As Tolerated, Pelvic Rest Referrals: CANDY WRAY MD [Primary Care Provider] - (4 weeks at [facility]) Home Medications: Prenat 115/Iron Fum/Folic/Dss [ 19 Tablet] 1 tab PO DAILY 01/02/18 HPI Gestational Age: 40.3 Reason(s) for Admission: PROM Procedures: NST, Ultrasound Intrapartum Procedure(s): Spontaneous Vaginal Delivery Complication(s): Laceration-Perineal Laceration-Degree: 2nd Hospital Course Hospital Course: routine, PP headache, blood patch 59. Maternal Morbidity (serious complications experinced by the mother associated with labor and delivery: None of the above Results Laboratory Results: WBC 11.1 10^3/uL (4.0-10.5) H 08/24/20 07:22 RBC 2.94 10^6/uL (3.72-5.28) L 08/24/20 07:22 Hgb 9.7 g/dL (12.0-15.5) L D 08/24/20 07:22 Hct 27.9 % (36.0-47.0) L 08/24/20 07:22 MCV 95 fl (80-97) 08/24/20 07:22 MCH 32.8 pg (27.0-33.4) 08/24/20 07:22 MCHC 34.6 g/dL (32.0-36.0) 08/24/20 07:22 RDW 16.6 % (11.5-14.0) H 08/24/20 07:22 Plt Count 247 10^3/uL (150-450) 08/24/20 07:22 Lymph % (Auto) 20.5 % (13-45) 08/22/20 22:52 [place] % (Auto) 10.0 % (3-13) 08/22/20 22:52 Eos % (Auto) 1.4 % (0-6) 08/22/20 22:52 Baso % (Auto) 0.6 % (0-2) 08/22/20 22:52 Absolute Neuts (auto) 5.2 10^3/uL (1.7-8.2) 08/22/20 22:52 Absolute Lymphs (auto) 1.6 10^3/uL (0.5-4.7) 08/22/20 22:52 Absolute Monos (auto) 0.8 10^3/uL (0.1-1.4) 08/22/20 22:52 Absolute Eos (auto) 0.1 10^3/uL (0.0-0.6) 08/22/20 22:52 Absolute Basos (auto) 0.0 10^3/uL (0.0-0.2) 08/22/20 22:52 Seg Neutrophils % 67.5 % (42-78) 08/22/20 22:52 Urine Color YELLOW 08/22/20 22:30 Urine Appearance TURBID 08/22/20 22:30 Urine pH 6.0 (5.0-9.0) 08/22/20 22:30 Ur Specific [place] 1.012 08/22/20 22:30 Urine Protein 100 mg/dL (NEGATIVE) H 08/22/20 22:30 Urine Glucose (UA) NEGATIVE mg/dL (NEGATIVE) 08/22/20 22:30 Urine Ketones NEGATIVE mg/dL (NEGATIVE) 08/22/20 22:30 Urine Blood LARGE (NEGATIVE) H 08/22/20 22:30 Urine Nitrite NEGATIVE (NEGATIVE) 08/22/20 22:30 Urine Bilirubin NEGATIVE (NEGATIVE) 08/22/20 22:30 Urine Urobilinogen 4.0 mg/dL (<2.0) H 08/22/20 22:30 Ur Leukocyte Esterase TRACE (NEGATIVE) H 08/22/20 22:30 Urine Ascorbic Acid NEGATIVE (NEGATIVE) 08/22/20 22:30 Urine Opiates Screen Cancelled 08/22/20 22:30 Urine Methadone Screen Cancelled 08/22/20 22:30 Ur Barbiturates Screen Cancelled 08/22/20 22:30 Ur Phencyclidine Scrn Cancelled 08/22/20 22:30 Ur Amphetamines Screen Cancelled 08/22/20 22:30 U Benzodiazepines Scrn Cancelled 08/22/20 22:30 Urine Cocaine Screen Cancelled 08/22/20 22:30 U Marijuana (THC) Screen Cancelled 08/22/20 22:30 RPR NONREACTIVE (NONREACTIVE) 08/22/20 22:52 Blood Type O POSITIVE 08/22/20 22:52 Antibody Screen NEGATIVE 08/22/20 22:52 Plan Health Concerns: routine Plan of Treatment: rev S&S to report Goals: no complications Time Spent: Less than 30 Minutes
[2020-08-25 11:58] VITALS: BP 120/66
== END 2020-08-25 14:25 | disposition home or self-care (01) | DRG 806 ==
LOC: LC 22:21 → LR 22:55 → 2S 08-23 14:40
PROVIDERS: ADMIT Obstetrics & Gynecology; ATTEND Obstetrics & Gynecology
PROC: 10E0XZZ Delivery of Products of Conception, External Approach (ICD-10-PCS; principal; 2020-08-23)
PROC: 0KQM0ZZ Repair Perineum Muscle, Open Approach (ICD-10-PCS; 2020-08-23)
PROC: 3E0R3GC Introduction of Other Therapeutic Substance into Spinal Canal, Percutaneous Approach (ICD-10-PCS; 2020-08-24)
DX: O42.92 Full-term premature rupture of membranes, unspecified as to length of time between rupture and onset of labor (principal); D62 Acute posthemorrhagic anemia; Z37.0 Single live birth; O70.1 Second degree perineal laceration during delivery; O89.4 Spinal and epidural anesthesia-induced headache during the puerperium; O99.02 Anemia complicating childbirth; Z3A.40 40 weeks gestation of pregnancy
CPT/HCPCS: 1967; 36415; 81005; 85025; 85027; 86592; 86850; 86900; 86901; 94760; J2590; J2795; J3010; J3490; J7120